=== PATIENT | male | born 1960 | race African-American/Black ===

== ENCOUNTER 2016-05-23 07:46 | Day surgery (SDC) | payer BC, OTHER ==
[~2016-05-23 07:46] MED LIST: DIPHENHYDRAMINE HCL 50 MG/ML VIAL ONE; EPINEPHRINE INJ 1 MG/10 ML DISP.SYRIN ONE; FENTANYL CITRATE INJ/PF 100 MCG/2 ML AMPUL ONE; FLUMAZENIL INJ 0.5 MG/5 ML VIAL IV ONE; GLUCAGON,HUMAN RECOMB 1 MG INJ ONE; NALOXONE HCL INJ/PF 0.4 MG/1 ML SDV ONE; ONDANSETRON HCL INJ/PF 4 MG/2 ML SDV ONE; PROMETHAZINE HCL INJ 25 MG/1 ML VIAL ONE
[2016-05-23] MEDS: MIDAZOLAM 2 MG/2 ML INJ ONE ×2 (08:03→08:10)
--- NOTE | 2016-05-23 08:26 | Operative Report ---
Operative Report DATE OF SURGERY: 05/23/16 Operative Report: The risks, benefits and alternatives of the procedure including risks of bleeding, perforation requiring surgery are explained to the patient in detail and informed consent is obtained. Patient is placed in a left lateral decubital position. A rectal examination was done which did not reveal any masses, tears or fissures. Timeout is called. Conscious sedation medications are provided. An Olympus videoscope was inserted into the patient's rectum. Keeping the lumen in site at all times the scope was then gradually advanced all the way to the cecum. The cecum as identified by the usual anatomical landmarks of the ileocecal valve as well as the appendiceal office. Photodocumentation was obtained. Prep is good. Scope is then sequentially pulled back out via the various segments of the colon including the ascending colon, hepatic flexure, transverse colon, right flexure, descending colon and rectosigmoid portions of the colon. Retroflexion maneuvers performed. PREOPERATIVE DIAGNOSIS: Colorectal cancer screening POSTOPERATIVE DIAGNOSIS: Normal screening colonoscopy OPERATION: Diagnostic colonoscopy SURGEON: LAURYN CHAU ANESTHESIA: Moderate Sedation - 4 mg of Versed 75 g of fentanyl TISSUE REMOVED OR ALTERED: None. COMPLICATIONS: None. ESTIMATED BLOOD LOSS: none. INTRAOPERATIVE FINDINGS: No masses, AVMs, polyps, diverticulosis noted PROCEDURE: Patient tolerated the procedure well. No immediate postprocedure complications are noted. Patient is discharged in good condition. Date of discharge 05/23/2016. Discharge diet: Regular. Discharge activity: Regular. 10 year surveillance should be adequate on this patient unless having problems. 2-3 week follow-up Patient is instructed to call the office or proceed to the emergency room should there be any further problems or questions.
[2016-05-23 09:16] VITALS: BP 116/84
== END 2016-05-23 09:20 | disposition home or self-care (01) ==
LOC: END 07:46
PROVIDERS: ATTEND Internal Medicine Gastroenterology
PROC: 0DJD8ZZ Inspection of Lower Intestinal Tract, Via Natural or Artificial Opening Endoscopic (ICD-10-PCS; principal; 2016-05-23 08:00)
DX: Z12.11 Encounter for screening for malignant neoplasm of colon (principal); Z79.899 Other long term (current) drug therapy
CPT/HCPCS: 45378; J2250; J3010; J0171; J1200; J1610; J2310; J2405; J2550; J3490